=== PATIENT | female | born 1980 | race Caucasian/White ===

== ENCOUNTER → 2017-06-11 | Outpatient (CLI) | payer OTHER ==
[~2017-06-11] MED LIST: *morphine SULFATE 8 MG/ML PERIprocedure ONLY ONE; INFL100P; PREN29TA PO
[2017-06-11 11:30] LABS: HEMATOCRIT 34.7 % (35.0-46.0); MEAN CELL VOLUME 92.6 FL (80.0-100.0); MEAN CORPUSCULAR HEMOGLOBIN 30.8 PG (27.0-34.0); MEAN CORPUSCULAR HGB CONC 33.3 % (32.0-36.0); PLATELET COUNT 286 TH/MM3 (150-450); RED BLOOD COUNT 3.74 MIL/MM3 (4.00-5.30); REVIEW FLAG FINAL; WHITE BLOOD COUNT 8.1 TH/MM3 (4.0-11.0)
[2017-06-11 11:47] LABS: BACTERIA, URINE RARE /hpf; BLOOD, URINE NEG (NEG); GLUCOSE,URINE NEG (NEG); KETONE, URINE NEG (NEG); NITRITE,URINE NEG (NEG); SQUAMOUS EPITHELIAL CELL URINE <1 /hpf (0-5); URINE COLOR LIGHT-YELLOW (YELLW/STRAW)
== END ==
LOC: CPRE 10:13
PROVIDERS: ATTEND Obstetrics & Gynecology
DX: O02.1 Missed abortion (principal); Z01.810 Encounter for preprocedural cardiovascular examination
CPT/HCPCS: 36415; 81001; 85027; 86900; 86901; J2270

== ENCOUNTER → 2017-06-12 | Day surgery (SDC) | payer OTHER ==
[~2017-06-12] VITALS: Ht 165.1 cm; Wt 55.9 kg
[~2017-06-12] MED LIST changes: -*morphine SULFATE 8 MG/ML PERIprocedure ONLY ONE; +ACETAMINOPHEN 1000 MG/100 ML 100 ML IV ONE; +ACETAMINOPHEN/HYDROcodone 325 MG/5 MG TAB ONE; +ACETAMINOPHEN/HYDROcodone 325 MG/5 MG TAB PO PRN; +CHLORHEXIDINE GLUCONATE 2 % 1 PACK (2 CLOTHS) TOPICAL PRN; +DO NOT ADM ANY ANTICOAGULANT DRUGS PRN; +INSULIN HUMAN REGULAR 1,000 UNITS/10 ML VIAL SQ PRN; +KETOROLAC TROMETHAMINE 60 MG/2 ML (IM) VIAL IM ONE; +LACTATED RINGER'S 1000 ML IV PRN; +METOPROLOL TARTRATE 25 MG TAB PO PRN; +MIDAZOLAM HCL 2 MG/2 ML VIAL ONE; +MORPHINE SULFATE 8 MG/ML INJ IV PUSH ONE; +ONDANSETRON HCL 4 MG/2 ML VIAL IV PUSH ONE; +POVIDONE IODINE 5% (ANTISEPSIS KIT) 4 APPLICATIONS EACH NARE PRN; +PROPOFOL 200 MG/20 ML AMP IV ONE; +SODIUM CHLORID 0.9% 500 ML IV PRN
[2017-06-12 14:30] VITALS: BP 100/53; PULSE 77; RESP 20; TEMP 98.6; O2SAT 100
--- NOTE | 2017-06-12 15:18 | MP ---
cc: CALE CABRERA Corrected: 06/13/17 DATE OF SURGERY: 06/12/2017 PREOPERATIVE DIAGNOSIS Missed . POSTOPERATIVE DIAGNOSIS Missed . PROCEDURE Dilation and evacuation of the uterus. ANESTHESIA General. SURGEON Liliana Cabrera MD FINDINGS The uterus was slightly enlarged and soft. The adnexa was negative for masses. The vagina was clean without bleeding. The cervix was clean. The products of conception looked normal. The uterus was deemed clean after the procedure. COMPLICATIONS None. COUNTS Correct. ESTIMATED BLOOD LOSS 200 cc. FLUIDS Crystalloids. CONDITION The patient tolerated the procedure well and went to the recovery room in good condition. DETAILS OF PROCEDURE The patient was taken to the operating room, identified by name band and verbally, given a general anesthetic, placed in the dorsal lithotomy position and prepped and draped in the usual sterile fashion for vaginal surgery. A timeout was taken. Examination under anesthesia was carried out after the urinary bladder was drained with in-and-out cath. A weighted speculum was placed in the vagina. The anterior lip of the cervix was grasped with a single-tooth tenaculum. The cervix was serially dilated without difficulty and a #8 curved cannula was placed into the uterine cavity and the products of conception evacuated under suction. A gentle sharp curettage followed and the procedure was terminated. She tolerated the procedure well and went to the recovery room in good condition. She did receive Toradol and Tylenol in the operating theatre. RCarlee Cabrera MD RJV/BT /1:40 PM /3:03 PM PATY
== END | disposition home or self-care (01) ==
LOC: HSDC 10:22 → EDUNIT# 12:00
PROVIDERS: ATTEND Obstetrics & Gynecology
DX: O02.1 Missed abortion (principal)
CPT/HCPCS: 01965; 59820; 88305; J0131; J1885; J2250; J2405; J3010; J7120; J2270